=== PATIENT | male | born 1945 | race Caucasian/White ===

== ENCOUNTER → 2017-11-01 | Outpatient (CLI) | payer MEDICARE, BC, OTHER ==
[~2017-11-01] MED LIST: ACEBUTOLOL HCL400 MG PO; ADVAIR 250-501 EACH IH; AFLURIA 2045 MCG/010 IM; APAP650 PO; ASPIRIN325 PO; BAYER CHEWABLE81 MG PO; BENADRYL25 MG PO; COD LIVER OIL1 EAC4 PO; COLACE 100 MG100 MG PO; COMBIVENT IN; COMBIVENT RESPIM4 GM INH; DOXYCYCLINE 10100 MG PO; EXCEDRIN MIGRA1 EAC1 PO; FLECAINIDE ACET50 M1 PO; FLORASTOR250 MG PO; HYDROCODONE-AP1 EAC6 PO; IMIPRAMINE HCL25 MG PO; KLOR-CON 1010 MEQ PO; LASIX 20 MG TAB20 MG PO; LEVAQUIN 500 M500 M2 PO; MIRALAX17 GM PO; OCUVITE EYE +1 EACH PO; OCUVITE SOFTGE1 EAC1 PO; OCUVITE TABLET1 EAC1 PO; PEPCID40 MG PO; PREDNISONE 10 M10 MG PO; PREDNISONE 20 M20 MG PO; SINGULAIR 10 MG10 M1 PO; TOFRANIL; TOPROL XL50 MG PO; TYLENOL325 MG PO; VERAPAMIL ER180 MG PO; VITAMIN C500 M1 PO; VITAMIN D1000 UNIT PO; VITAMIN D3400 UNIT PO; XARELTO20 MG PO
--- NOTE | 2017-11-01 16:20 | 2DMMODE ---
[place] [address] 2 D/M-MODE ECHOCARDIOGRAM Name: KAYLYNN BETH Room: [facility]#: [id number] Admission: 11/01/17 Attend Phys: Tank Carmen, Discharge: Date of : 45 Date of Service: 11/01/17 1620 Report #: [id number] THIS REPORT FOR: //name// APPROVED REPORT Study performed: 11/01/2017 12:53:42 EXAM: Comprehensive 2D, Doppler, and color-flow Echocardiogram Patient Location: Out-Patient Status: routine BSA: 2.02 HR: 68 bpm BP: 142/82 mmHg Other Information Study Quality: Good Indications Cardiomyopathy 2D Dimensions LVEF(%): 58.76 (>50%) IVSd: 12.42 (7-11mm) LVOT Diam: 20.82 (18-24mm) LVDd: 50.60 mm PWd: 11.16 (7-11mm) Ascending Ao: 30.66 (22-36mm) LVDs: 34.79 (25-40mm) Aortic Root: 29.22 mm Tabares's LVEF: 58.76 % Volumes Left Atrial Volume (Systole) LA ESV Index: 15.70 mL/m2 Aortic Valve AoV Peak Lam.: 1.32 m/s AO Peak Gr.: 6.97 mmHg LVOT Max P.02 mmHg AO Mean Gr.: 3.81 mmHg LVOT Mean P.52 mmHg LVOT Max V: 0.87 m/s AO V2 VTI: 30.41 cm LVOT Mean V: 0.57 m/s VAUGHN (VTI): 2.50 cm2 LVOT V1 VTI: 22.36 cm Mitral Valve E/A Ratio: 0.81 MV Decel. Time: 348.09 [place] [address] 2 D/M-MODE ECHOCARDIOGRAM Name: KAYLYNN BETH Room: [facility]#: [id number] Admission: 11/01/17 Attend Phys: Tank Carmen, Discharge: Date of : 45 Date of Service: 11/01/17 1620 Report #: [id number] MV E Max Lam.: 0.72 m/s MV PHT: 100.94 ms MVA (PHT): 2.18 cm2 TDI E/Lateral E': 8.00 E/Medial E': 7.20 Medial E' Lam.: 0.10 m/s Lateral E' Lam.: 0.09 m/s Pulmonary Valve PV Peak Lam.: 0.98 m/s PV Peak Gr.: 3.87 mmHg Tricuspid Valve TR Peak Gr.: 36.16 mmHg RVSP: 41.16 mmHg Left Ventricle The left ventricle is normal size. There is mild global hypokinesis. There is left ventricular dyssynergy consistent with bundle branch block. There is normal left ventricular wall thickness. Left ventricular systolic function is mild to moderately decreased. LVEF is 45-50%. Grade I - abnormal relaxation pattern. Right Ventricle The right ventricle is normal size. The right ventricular systolic function is normal. Atria The left atrium size is normal. The right atrium size is normal. Aortic Valve The aortic valve is normal in structure. No aortic regurgitation is present. There is no aortic valvular stenosis. Mitral Valve The mitral valve is normal in structure. Mild mitral regurgitation. No evidence of mitral valve stenosis. Tricuspid Valve The tricuspid valve is normal in structure. Mild tricuspid regurgitation. The RVSP is __41.2 mmHg. Mild tricuspid regurgitation. The RVSP is _41.2 mmHg. Pulmonic Valve The pulmonary valve is normal in structure. There is no pulmonic [place] [address] 2 D/M-MODE ECHOCARDIOGRAM Name: KAYLYNN BETH [id number] Admission: 11/01/17 Attend Phys: Tank Carmen, Discharge: Date of : 45 Date of Service: 11/01/17 1620 Report #: [id number] Great Vessels The aortic root is normal in size. IVC is normal in size and collapses with >50% inspiration Pericardium There is no pericardial effusion. <Conclusion> The left ventricle is normal size. There is normal left ventricular wall thickness. Left ventricular systolic function is mild to moderately decreased. LVEF is 45-50%. Grade I - abnormal relaxation pattern. Mild mitral regurgitation. Mild tricuspid regurgitation. The RVSP is __41.2 mmHg. Mild tricuspid regurgitation. The RVSP is _41.2 mmHg. <ELECTRONICALLY SIGNED> By: Mathieu Lorenzo MD, FACC 11/01/171619 19 19 Mathieu Lorenzo MD, FACC /INF
== END ==
LOC: M.CRD 12:37
DX: I08.1 Rheumatic disorders of both mitral and tricuspid valves (principal); I42.9 Cardiomyopathy, unspecified; I48.3 Typical atrial flutter; I10 Essential (primary) hypertension

== ENCOUNTER 2018-01-05 12:10 | Inpatient (IN) | payer MEDICARE, BC, OTHER ==
[~2018-01-05] VITALS: Ht 182.9 cm; Wt 78.5 kg
[~2018-01-05 12:10] MED LIST changes: -APAP650 PO; -DOXYCYCLINE 10100 MG PO; -FLORASTOR250 MG PO; -MIRALAX17 GM PO; -OCUVITE EYE +1 EACH PO
[2018-01-05 12:18] VITALS: BP 154/82
[2018-01-05 13:05] LABS: HEMATOCRIT 39.6 % (42.0-52.0); HEMOGLOBIN 13.1 gm/dL (14.0-18.0); MCH 35.3 pg (26.0-34.0); MCV 107.1 fL (80.0-100.0); MPV 9.4 fl. (7.2-11.1); NUCLEATED RBCS 0 /100WBC; PLATELET COUNT* 223 thou/uL (150-400); RDW-CV 13.2 % (10.5-14.5); WBC 23.7 thou/uL (4.0-11.0)
[2018-01-05 13:15] LABS: ANION GAP 7 mmol/L (7-16); BUN 15 mg/dL (7-18); CALCIUM 8.4 mg/dL (8.5-10.1); CHLORIDE 97 mmol/L (98-107); CO2 31 mmol/L (21-32); GLUCOSE 165 mg/dL (70-99); POTASSIUM 3.9 mmol/L (3.5-5.1); SODIUM 135 mmol/L (136-145)
[2018-01-05 13:25] LABS: ALBUMIN 3.7 g/dL (3.4-5.0); ALKALINE PHOSPHATASE 90 U/L (46-116); LIPASE 78 U/L (73-393); NT-PRO BRAIN NAT PEPTIDE 2133 pg/mL (<300); SGOT 17 U/L (15-37); SGPT 20 U/L (30-65); TOTAL BILIRUBIN 2.1 mg/dL (<0.1-1.0); TOTAL PROTEIN 6.7 g/dL (6.4-8.2); TROPONIN-I LEVEL <0.06 ng/mL (<0.06)
[2018-01-05 13:47] LABS: ABSOLUTE LYMPHOCYTES 0.7 thou/uL (0.8-5.3); ABSOLUTE MONOCYTES 2.1 thou/uL (0.0-1.2); ABSOLUTE NEUTROPHILS 20.9 thou/uL (1.6-8.1); MACROCYTES 2+; PLATELET ESTIMATE ADEQUATE; POLYCHROMASIA 1+
--- NOTE | 2018-01-05 15:56 | EKG ---
[place] [address] ELECTROCARDIOGRAM REPORT Name: KAYLYNN BETH Room: [place] [address] ADM IN [facility]#: [id number] Admission: 01/05/18 Attend Phys: Eitan Kessler Discharge: Date of : 45 Report #: [id number] THIS REPORT FOR: //name// [facility] ED Test Date: 2018-01-05 Test Time: 12:24:10 Pat Name: KAYLYNN BETH Department: Room: Gender: Fiscal Clerk: Jennifer MCKEON : 1945 Requested By: Thad Deluna Order Number: [id number] MD: Jhony Dunham Measurements Intervals [place] Rate: 70 P: 0 ND: 57 QRS: 74 QRSD: 152 T: QT: 433 QTc: 468 Interpretive Statements Sinus rhythm Short ND interval Probable left atrial enlargement Nonspecific intraventricular conduction delay Borderline repolarization abnormality Compared to ECG 05/22/2016 07:23:48 Short ND interval now present ST (T wave) deviation no longer present Electronically Signed On 01-05-2018 15:55:53 CDT by Jhony Dunham [email or web address] <ELECTRONICALLY SIGNED> By: Jhony Dunham MD, [facility] 01/05/18 1555 1224 1224 Jhony Dunham MD, [facility] /EPI
[2018-01-05 16:30] VITALS: BP 130/55
--- NOTE | 2018-01-05 19:00 | NUR ---
PT ARRIVED TO ROOM 212 AT APPROX 1630, PT ORIENTED TO ROOM AND STAFF, PT A/O X4, STEADY ON FEET, UP AD ANJEL. ON 3L NC, STATES HE IS STARTING TO FEEL BETTER. VSS, SR ON THE MONITOR. PTS HOME MEDS REVIEWED AND UPDATED. ADMISSION HX, AND ASSESMENT DONE CHARTED. PT USING CALL LIGHT APPROPRIALTY. WILL CONTINUE TO MONITOR.
[2018-01-05 20:00] VITALS: BP 151/71
[2018-01-06] VITALS: BP 142/68
--- NOTE | 2018-01-06 00:08 | NUR ---
PT ALERT ORIENTED. O2 AT 3 LITERS NC. O2 SAT 99% TELEMETRY SHOWS SR, BBB, 1ST DEGREE AVB. RESTING QUIETLY. WILL CONTINUE TO MONITOR.
[2018-01-06 04:16] VITALS: BP 143/70
[2018-01-06 08:00] VITALS: BP 134/59
--- NOTE | 2018-01-06 09:00 | NUR ---
VSS, ASSUMED CARE IN THE AM, ASSESSMENT PEFORMED AND CHARTED, FALL PRECAUTIONS IN PLACE AND CALL LIGHT IN REACH, PT IS A&O4, UP AD ANEJL AND SR BBB ON MONITOR, PT IS UP AD ANJEL DENIES ANY PAIN AND IS ON 3L NC, HIS GOAL IS TO MANJU O2 DOWN RO 1-2 L AND WALK IN ROOM AND IMPROVE BREATHING.
[2018-01-06 12:00] VITALS: BP 128/63
[2018-01-06 17:08] VITALS: BP 116/50
[2018-01-06 20:00] VITALS: BP 152/64
--- NOTE | 2018-01-06 20:00 | NUR ---
VSS, PT IS PROGRESSING TOWARDS GOAL, PT IS UP AD ANJEL AND IS ON 2-3 L NC AND DENIES ANY PAIN IS A&O4 AND HAS BEEN UP IN ROOM AND TO CHAIR, WILL FOLLOW WITH PLAN OF CARE, HOURLY ROUNDS COMPLETED.
[2018-01-07] VITALS (7 sets, daily range): BP systolic 96–137; BP diastolic 44–79
--- NOTE | 2018-01-07 04:56 | NUR ---
PATIENT RESTED IN BED, NO ACUTE CHANGES. PATIENT DID NOT SHOW SIGNS OF DISTRESS. PATIENT RESTED WELL. CALL LIGHT WITHIN REACH, HOURLY ROUNDING OBSERVED, FALL PRECAUTIONS IN PLACE.
--- NOTE | 2018-01-07 08:00 | NUR ---
VSS, ASSUMED CARE IN THE AM, ASSESSMENT PERFROMED AND CHARTED, FALL PRECAUTIONS IN PLACE AND CALL LIGHT IN RECAH, PT IS A&O4 AND UP AD ANJEL, TRACING SR ON THE MONITOR AND IS TRACING SR ON THE MONITOR C BBB, PT IS ON 1-2 L NC AND DENIES ANY PAIN, PT GOAL IS TO IMPROVE BREATHING AND WALK IN ROOM, WILL FOLLOW WITH PLAN CARE.
[2018-01-08 04:00] VITALS: BP 139/62
--- NOTE | 2018-01-08 05:47 | NUR ---
PATIENT RESTED IN BED, NO ACUTE CHANGES. PATIENT DID NOT SHOW SIGNS OF DISTRESS, PATIENT TOLERATED 1 LITER O2 WELL. FALL PRECAUTIONS IN PLACE, PATIENT UP AB-ANJEL.
[2018-01-08 09:00] VITALS: BP 133/69
[2018-01-08 11:15] VITALS: BP 167/81
--- NOTE | 2018-01-08 11:54 | NUR ---
ASSUMED CARE OF PATIENT THIS AM AT 0730. PATIENT IS ALERT AN ORIENTED X 4. HE DENIES PAIN AND DISCOMFORT THIS AM. O2 SATS 97% ON 1 LITER. O2 DISCONTINUED. PATIENT TAKEN TO RADIOLOGY PER FOR A CT SCAN AND RETURNED. HE CONTINUES ON IV STERIODS. LUNG SOUNDS ARE CLEAR. PATIENT BECOMES SOA WITH MILD ACIVITY. TELE SHOWS SRMckay TORRE IN TO ROUND. PLANS FOR DISCHARGE ON TUESDAY.
[2018-01-08 16:30] VITALS: BP 150/74
[2018-01-08 20:00] VITALS: BP 151/82
[2018-01-08 20:30] VITALS: BP 170/78
--- NOTE | 2018-01-08 20:30 | NUR ---
PT TRANSFERRED TO FLOOR PER WHEELCHAIR ACCOMPANIED BY ER STAFF WITH BELONGINGS AND CHART. ORIENTED TO ROOM AND CALL LITE. PT PLACED ON O2 1L PER REQUEST, ROOM AIR SAT 91%. OCC CONGESTED COUGH HEARD, PT STATES HE IS HAVING SOME SPUTUM BUT NOT OBSERVED. DENIES PAIN. RWRIST SL IV. PLACED ON TELE MONITOR, SR RATE 82. DENIES NEEDS AT THIS TIME. WILL CONTINUE TO MONITOR AND PROVIDE CARES NEEDED.CALL LITE IN EASY REACH, PT AOX4 AND UP WITH STEADY GAIT IN ROOM.
[2018-01-09 00:37] VITALS: BP 140/64
[2018-01-09 03:55] VITALS: BP 145/75
--- NOTE | 2018-01-09 04:01 | NUR ---
PATIENT WAS TRANSFER TO ROOM 308 YESTERDAY. PATIENT DID NOT SHOW SIGNS OF DISTRESS AT TRANSFER OR DID NOT SHOW ACUTE CHANGES.
--- NOTE | 2018-01-09 06:29 | NUR ---
PT SLEPT WELL OVERNIGHT AFTER SETTLING IN AFTER TRANSFER FROM [facility]. TELE MONITOR, SR OVERNIGHT. PO MEDS GIVEN WITHOUT DIFFICULTY. LWRIST IV SL. NO LABS THIS MORNING. WEARING 02 1.5L OVERNIGHT TO KEEP SATS >92% UP AD ANJEL IN ROOM VOIDING WITHOUT DIFFICULTY. ABLE TO USE CALL LITE AND MAKE NEEDS KNOWN. POSSIBLE DISCHARGE TODAY WITH FOLLOW UP OUTPT.
--- NOTE | 2018-01-09 07:27 | CON ---
[address] [address] CONSULTATION Name: KAYLYNN BETH Room: [address] IN .R.#: [id number] Admission: 01/05/18 Attend Phys: Eitan Kessler Discharge: Date of : 45 Report #: [id number] THIS REPORT FOR: //name// CC: Kaylynn Rodriguez DATE OF SERVICE: 01/06/2018 REQUESTING PHYSICIAN: Jesus Rodriguez DO REASON FOR CONSULTATION: COPD exacerbation, pneumonia. DISCUSSION: The patient is a 72-year-old man with history of very severe COPD. He has chronic hypoxemia, but has declined O2 in the past. He follows with Dr. Esteves in our office. He presented to the Emergency Department yesterday with 3-4 day history of increasing cough, congestion, shortness of breath. Has been coughing up some thick secretions. They had been yellow. Not aware of any fevers at home. He had O2 saturations in the 70s at the time he presented to the Emergency Department. He was placed on oxygen. Chest x-ray revealed bibasilar infiltrates. He has been admitted. He has been on IV steroids. Antibiotic therapy has been started. Also been getting nebulizer treatments. He is starting to feel somewhat better today. He is a former smoker, quitting over 10 years ago. He does have very severe COPD. Last full pulmonary function studies done 2014. His FEV1 was only 0.65 or 19% of predicted. His FEV1/FVC ratio is 33%. Spirometry done a year ago, his FEV1 was 0.6 which came as 19% of predicted. Normally at home, he is on Advair 250/50 one puff b.i.d., nebulizer treatments with DuoNeb supplemented by Combivent, which he generally does. Other one goes up to at least 4 times a day and montelukast 10 mg a day. He will take Mucinex, though the amounts and frequency may vary depending on the amount of congestion that he has. He is chronically hypoxic. Was set up with oxygen several years ago after hospital stay here, but he declined to continue using it and had picked up. When he was in the office in August and saw Dr. Esteves at that time, revealed marked hypoxemia. He certainly did qualify for O2 at that time at 2 liters, but again he declined to use it. I noted at that time, his resting room air O2 saturations were 81%. PAST MEDICAL HISTORY: Besides the severe COPD is remarkable for atrial fibrillation. Crime Victim Specialist has recommended Xarelto in the past, but he declined that as well. History of prostate cancer. He has had a prostatectomy, osteoporosis, prior TIA, [place] [address] CONSULTATION Name: KAYLYNN BETH Room: [address] IN [facility]#: [id number] Admission: 01/05/18 Attend Phys: Eitan Kessler Discharge: Date of : 45 Report #: [id number] SOCIAL HISTORY: Former smoker as noted. Has 60+ pack year smoking history, but quit in 2004. 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 FAMILY HISTORY: Positive for COPD, hypertension and cancer. REVIEW OF SYSTEMS: A 12-point ROS was done. Note positives as above. Denies any recent complaints of palpitations. Denies any difficulty swallowing. He has not had any nausea or vomiting. He has had little bit of constipation. He has not had any chest pain. Has had a near syncopal episode in the past, but none recently. Has not noted any lower extremity edema. No hemoptysis. No blood in his stools. PHYSICAL EXAMINATION: GENERAL APPEARANCE: The patient is a male who looks stated age. He is resting in bed. His O2 is running via nasal cannula. He is alert, conversant, and able to speak in full sentences. HEENT: Head is normocephalic. Sclerae are nonicteric. Mucous membranes are moist. He has no oral candidiasis noted. NECK: Negative for adenopathy. No JVD. Neck muscles quite well developed. No supraclavicular adenopathy. HEART: Regular. Occasional extrasystole. It does appear that he is in normal sinus rhythm. No S3 is heard. LUNGS: Show breath sounds to be diminished. He has prolonged expiratory phase. Scattered expiratory wheezes are heard. Does have a few faint bibasilar crackles heard. No E to A changes. No dullness to percussion. Excursion is equal. No CVA tenderness. ABDOMEN: Soft, without appreciable hepatosplenomegaly. There is no guarding or rebound tenderness. EXTREMITIES: He has no clubbing. Radial pulses are present. Lower extremities negative for any significant edema. SKIN: Warm and dry. NEUROLOGIC: He is alert and oriented x 3. Moving all extremities. Affect is normal. LABORATORY AND X-RAY FINDINGS: Chest x-ray does reveal bibasilar infiltrates. This is new compared to studies done 2 years ago. White blood cell count was 23,700, hemoglobin 13.1, hematocrit of 39.6, MCV of 107. Platelets are normal. On his chemistry, lactic acid was 1.8, potassium 3.9, BUN of 15, creatinine of 1.0, total bilirubin elevated at 2.1. Transaminases normal. ProBNP 2133. Alkaline phosphatase was normal at 90. Echocardiogram done this spring revealed LV function to be mild to moderately decreased with an EF of 45-50%. He had grade 1 diastolic dysfunction. RV was normal. He had mild mitral regurgitation. IMPRESSION: 1. Bilateral pulmonary infiltrates. All [place] [address] CONSULTATION Name: KAYLYNN BETH Room: [address] IN [facility].#: [id number] Admission: 01/05/18 Attend Phys: Eitan Kessler Discharge: Date of : 45 Report #: [id number] 2. Chronic obstructive pulmonary disease exacerbation. Baseline has very severe disease with his FEV1 of only 19% of predicted. 3. History of atrial fibrillation. 4. Chronic hypoxic respiratory failure. Previously had declined supplemental O2 at home. 5. History of spiculated lung mass noted on imaging studies 2 years ago. Unclear what followup imaging he may or may not have had. RECOMMENDATIONS: 1. Continue with antibiotics, steroids and bronchodilator therapy. Use budesonide and Brovana while hospitalized to replace his Advair. 2. Mucinex. 3. Follow up imaging studies. 4. Consider followup CT scan of his chest as well. I would like the pneumonic infiltrates to clear. 5. He is now much more open to utilizing O2 at home. O2 needs can be reevaluated prior to discharge. 6. Anticipate he will need several days of inpatient treatment. <ELECTRONICALLY SIGNED> By: Jaleesa Nelson MD 01/09/18 0727 1038 1924Jaleesa Nelson MD /nt
[2018-01-09 08:00] VITALS: BP 130/73
[2018-01-09 12:00] VITALS: BP 160/80
--- NOTE | 2018-01-09 15:36 | NUR ---
Pt to dc home with tomorrow. Possible oxygen needs; SW to await results of exercise oximetry and arrange for oxygen to be delivered if needed.
[2018-01-09 16:00] VITALS: BP 150/74
--- NOTE | 2018-01-09 16:21 | NUR ---
PT UP IN ROOM WITH STEADY GAIT. REPORTS IMPROVEMENT OF BREATHING. PT REMAINS ON O2@2L NC.
[2018-01-10 00:12] VITALS: BP 146/80
--- NOTE | 2018-01-10 05:17 | NUR ---
ASSESSMENT COMPLETE. PT SLEPT THROUGH THE NIGHT WITHOUT ANY CONCERNS. PT DENIES PAIN. PT IS ON 1L PER NC WITH ADEQUATE SATS. PT IS UP AD ANJEL WITH STEADY GAIT TO BATHROOM. SEE ASSESSMENT AND VITALS FOR OTHER DETAILS. CALL LIGHT WITHIN REACH, WILL CONTINUE PLAN OF CARE
[2018-01-10 08:00] VITALS: BP 128/65
--- NOTE | 2018-01-10 12:29 | NUR ---
Pt to dc home with today. Pt does not need oxygen arranged for home. No other dc needs expressed.
[2018-01-10] MEDS ORDERED: APAP650 PO (13:37)
[2018-01-10] MEDS ORDERED: OCUVITE EYE +1 EACH PO (13:39)
[2018-01-10] MEDS ORDERED: MIRALAX17 GM PO (13:45)
[2018-01-10] MEDS ORDERED: FLORASTOR250 MG PO (13:46)
[2018-01-10] MEDS ORDERED: PREDNISONE 10 M10 MG PO (13:56)
[2018-01-10] MEDS ORDERED: DOXYCYCLINE 10100 MG PO (13:57)
--- NOTE | 2018-01-10 14:23 | NUR ---
ASSUMED CARE THIS AM, SEE ASSESSMENT FOR DETAILS. DISCHARGE ORDERS RECEIVED, IV ACCESS DISCONTINUED WITHOUT ISSUE. DISCHARGE INSTRUCTIONS, FOLLOW UP APPOINTMENTS, PRESCRIPTIONS, DISCUSSED WITH, GIVEN TO PATIENT, DENIES QUESTIONS. PERSONAL EFFECTS GATHERED, ACCOUNTED FOR, IN COMPANY OF PATIENT. TRANSPORTED TO MAIN ENTRANCE VIA WHEELCHAIR IN STABLE CONDITION.
== END 2018-01-10 14:30 | disposition home or self-care (01) | DRG 177 ==
LOC: M.ERS 12:10 → M.TBA-ER 13:45 → M.2W 13:45 → M.3W 01-08 20:56
PROVIDERS: Emergency Medicine Emergency Medical Services; ADMIT Internal Medicine
DX: J69.0 Pneumonitis due to inhalation of food and vomit (principal); J96.01 Acute respiratory failure with hypoxia; R65.11 Systemic inflammatory response syndrome (SIRS) of non-infectious origin with acute organ dysfunction; J44.1 Chronic obstructive pulmonary disease with (acute) exacerbation; J44.0 Chronic obstructive pulmonary disease with (acute) lower respiratory infection; I42.9 Cardiomyopathy, unspecified; I48.92 Unspecified atrial flutter; E44.0 Moderate protein-calorie malnutrition; M81.0 Age-related osteoporosis without current pathological fracture; I10 Essential (primary) hypertension; I48.91 Unspecified atrial fibrillation; R91.8 Other nonspecific abnormal finding of lung field; Z88.1 Allergy status to other antibiotic agents; Z88.8 Allergy status to other drugs, medicaments and biological substances; Z85.46 Personal history of malignant neoplasm of prostate; Z98.42 Cataract extraction status, left eye; Z98.41 Cataract extraction status, right eye; Z79.2 Long term (current) use of antibiotics; Z87.891 Personal history of nicotine dependence; Z98.890 Other specified postprocedural states; Z86.73 Personal history of transient ischemic attack (TIA), and cerebral infarction without residual deficits; Z68.23 Body mass index [BMI] 23.0-23.9, adult; Z79.82 Long term (current) use of aspirin; Z79.899 Other long term (current) drug therapy

== ENCOUNTER 2018-09-05 10:23 | Inpatient (IN) | payer MEDICARE, BC, OTHER ==
[~2018-09-05] VITALS: Ht 182.9 cm; Wt 80.3 kg
[2018-09-05 10:23] VITALS: BP 160/80
[~2018-09-05 10:23] MED LIST changes: +APAP650 PO; +DOXYCYCLINE 10100 MG PO; +FLORASTOR250 MG PO; +MIRALAX17 GM PO; +OCUVITE EYE +1 EACH PO
[2018-09-05 10:56] LABS: HEMATOCRIT 33.3 % (42.0-52.0); HEMOGLOBIN 11.3 gm/dL (14.0-18.0); MCH 36.3 pg (26.0-34.0); MCHC 33.9 g/dL (28.0-37.0); MCV 106.9 fL (80.0-100.0); MPV 8.3 fl. (7.2-11.1); NUCLEATED RBCS 0 /100WBC; PLATELET COUNT* 280 thou/uL (150-400); RBC 3.11 mil/uL (4.50-6.00); RDW-CV 12.9 % (10.5-14.5)
[2018-09-05 11:06] LABS: APTT 27.5 Seconds (25.0-31.3)
[2018-09-05] MEDS ORDERED: VITAMIN D3400 UNIT PO (11:08)
[2018-09-05] MEDS ORDERED: STIOLTO RESPIMAT4 GM IH (11:08)
[2018-09-05 11:13] LABS: INFLUENZA A ANTIGEN None Detected (None Detect); INFLUENZA B ANTIGEN None Detected (None Detect)
[2018-09-05 11:15] LABS: ANION GAP 7 mmol/L (7-16); BUN 8 mg/dL (7-18); CALCIUM 8.1 mg/dL (8.5-10.1); CHLORIDE 95 mmol/L (98-107); CO2 30 mmol/L (21-32); CREATININE 0.6 mg/dL (0.6-1.3); GLUCOSE 117 mg/dL (70-99); POTASSIUM 4.2 mmol/L (3.5-5.1); SODIUM 132 mmol/L (136-145)
[2018-09-05 11:17] LABS: BE 1.2 mmol/L (-2 to +3); HCO3 25.7 mmol/L (22.0-26.0); PCO2 40.3 mmHg (35.0-45.0); pH 7.422 (7.340-7.450)
[2018-09-05 11:18] LABS: ABSOLUTE LYMPHOCYTES 0.6 thou/uL (0.8-5.3); ABSOLUTE MONOCYTES 1.1 thou/uL (0.0-1.2); ABSOLUTE NEUTROPHILS 10.3 thou/uL (1.6-8.1)
[2018-09-05 11:19] LABS: PLATELET ESTIMATE ADEQUATE
[2018-09-05 11:21] LABS: MACROCYTES 2+
[2018-09-05 11:24] LABS: PO2 140.5 mmHg (75.0-100.0)
[2018-09-05 11:27] LABS: ALBUMIN 2.8 g/dL (3.4-5.0); ALKALINE PHOSPHATASE 88 U/L (46-116); NT-PRO BRAIN NAT PEPTIDE 1789 pg/mL (<300); SGOT 12 U/L (15-37); SGPT 17 U/L (30-65); TOTAL BILIRUBIN 0.9 mg/dL (<0.1-1.0); TOTAL PROTEIN 5.9 g/dL (6.4-8.2); TROPONIN-I LEVEL <0.06 ng/mL (<0.06)
[2018-09-05 13:21] VITALS: BP 138/86
[2018-09-05 13:45] VITALS: BP 171/72
--- NOTE | 2018-09-05 14:21 | NUR ---
PT ARRIVED ON THE UNIT FROM ER AT 1345. REPORT TAKEN FROM NEIL CARTER. ASSESSED PT AND DOCUMENTED. PT SAT AT 100 ON 4L. LOWERED 02 TO 2.5L SAT AT 96%. PT IS AFEBRILE. HE IS A&O WITH NO C/O PAIN. PT SIGNED PT RIGHTS AND FALL AGREEMENT. PT HAS AGREED TO WEAR SCDS. HEART MONITER ON. BED IS IN LOW POSITION CALL LIGHT IS IN REACH. WM.
--- NOTE | 2018-09-05 16:38 | NUR ---
PT HAS RESTED IN HIS ROOM. IS AT BEDSIDE. EDUCATION GIVEN ON DEMAND. HOURLY ROUNDING COMPLETE.
[2018-09-05 16:43] VITALS: BP 151/69
--- NOTE | 2018-09-05 17:03 | EKG ---
[place] [address] ELECTROCARDIOGRAM REPORT Name: KAYLYNN BETH Room: [address] ADM IN M.R.#: [id number] Admission: 09/05/18 Attend Phys: Wellington Kowalski MD Discharge: Date of : 45 Report #: [id number] THIS REPORT FOR: //name// [facility] ED Test Date: 2018-09-05 Test Time: 10:56:21 Pat Name: KAYLYNN DANIELKelly Department: Room: [facility] Gender: M Steward/Stewardess Third: : 1945 Requested By: Soraya Boland Order Number: [id number] MD: Mathieu Lorenzo Measurements Intervals [place] Rate: 75 P: 89 NM: 50 QRS: 66 QRSD: 137 T: 57 QT: 408 QTc: 456 Interpretive Statements Sinus rhythm Short NM interval Nonspecific intraventricular conduction delay Compared to ECG 01/05/2018 12:24:10 No significant changes Electronically Signed On 09-05-2018 17:02:46 HELP DESK REP by Mathieu Lorenzo [email or web address] <ELECTRONICALLY SIGNED> By: Mathieu Lorenzo MD, [facility] 09/05/18 1702 1056 1056 Mathieu Lorenzo MD, [facility] /EPI
--- NOTE | 2018-09-05 17:16 | 2DMMODE ---
[place] [address] 2 D/M-MODE ECHOCARDIOGRAM Name: KAYLYNN BETH Room: [address] IN [facility]#: [id number] Admission: 09/05/18 Attend Phys: Wellington Kowalski, Discharge: Date of : 45 Date of Service: 09/05/18 1716 Report #: [id number] THIS REPORT FOR: //name// APPROVED REPORT Study performed: 09/05/2018 14:46:21 EXAM: Comprehensive 2D, Doppler, and color-flow Echocardiogram Patient Location: In-Patient Room #: [facility] Status: routine BSA: 2.04 HR: 86 bpm BP: 138/86 mmHg Rhythm: NSR Other Information Study Quality: Good Indications Dyspnea 2D Dimensions IVSd: 12.21 (7-11mm) LVOT Diam: 21.27 (18-24mm) LVDd: 51.61 mm PWd: 12.40 (7-11mm) Ascending Ao: 35.22 (22-36mm) LVDs: 36.10 (25-40mm) Aortic Root: 35.18 mm Volumes Left Atrial Volume (Systole) LA ESV Index: 32.50 mL/m2 Aortic Valve AoV Peak Lam.: 1.51 m/s AO Peak Gr.: 9.11 mmHg LVOT Max P.16 mmHg AO Mean Gr.: 5.62 mmHg LVOT Mean P.94 mmHg LVOT Max V: 1.02 m/s AO V2 VTI: 32.53 cm LVOT Mean V: 0.63 m/s VAUGHN (VTI): 2.18 cm2 LVOT V1 VTI: 19.97 cm Mitral Valve E/A Ratio: 0.74 MV Decel. Time: 149.18 ms MV E Max Lam.: 0.86 m/[place] [address] 2 D/M-MODE ECHOCARDIOGRAM Name: KAYLYNN BETH Room: [address] IN .R.#: [id number] Admission: 09/05/18 Attend Phys: Wellington Kowalski, Discharge: Date of : 45 Date of Service: 09/05/18 1716 Report #: [id number] MV PHT: 43.26 ms MVA (PHT): 5.09 cm2 TDI E/Lateral E': 7.82 Lateral E' Lam.: 0.11 m/s Pulmonary Valve PV Peak Lam.: 1.22 m/s PV Peak Gr.: 5.98 mmHg Tricuspid Valve RAP Estimate: 5.00 mmHg TR Peak Gr.: 54.02 mmHg RVSP: 59.00 mmHg PA Pressure: 59.00 mmHg Left Ventricle The left ventricle is normal size. There is normal LV segmental wall motion. Mild concentric left ventricular hypertrophy. Left ventricular systolic function is normal. LVEF is 55-60%. Grade I - abnormal relaxation pattern. Right Ventricle The right ventricle is normal size. The right ventricular systolic function is normal. Atria The left atrium size is normal. The right atrium size is normal. Aortic Valve The aortic valve is normal in structure. No aortic regurgitation is present. There is no aortic valvular stenosis. Mitral Valve The mitral valve is normal in structure. Trace mitral regurgitation. No evidence of mitral valve stenosis. Tricuspid Valve The tricuspid valve is normal in structure. Mild tricuspid regurgitation. Moderate pulmonary hypertension. Pulmonic Valve The pulmonary valve is normal in structure. There is no pulmonic valvular regurgitation. [place] [address] 2 D/M-MODE ECHOCARDIOGRAM Name: KAYLYNN BETH Room: [address] IN ..#: [id number] Admission: 09/05/18 Attend Phys: Wellington Kowalski, Discharge: Date of : 45 Date of Service: 09/05/18 1716 Report #: [id number] The aortic root is normal in size. IVC is normal in size and collapses >50% with inspiration. Pericardium There is no pericardial effusion. <Conclusion> The left ventricle is normal size. Mild concentric left ventricular hypertrophy. Left ventricular systolic function is normal. LVEF is 55-60%. Grade I - abnormal relaxation pattern. Mild tricuspid regurgitation. Moderate pulmonary hypertension. <ELECTRONICALLY SIGNED> By: Mathieu Lorenzo MD, FACC 09/05/181715 15 15 Mathieu Lorenzo MD, FACC /INF
[2018-09-05 20:00] VITALS: BP 153/65
[2018-09-06] VITALS: BP 113/50; BP 156/78
[2018-09-06 04:00] VITALS: BP 149/71
--- NOTE | 2018-09-06 04:42 | NUR ---
PATIENT RESTED IN BED, NO ACUTE CHANGES. PATIENT DID NOT SHOW SIGNS OF DISTRESS. CALL LIGHT WITH IN REACH, HOURLY ROUNDING OBSERVED.
[2018-09-06 05:17] LABS: HEMATOCRIT 31.5 % (42.0-52.0); HEMOGLOBIN 10.7 gm/dL (14.0-18.0); MCH 36.8 pg (26.0-34.0); MCV 108.2 fL (80.0-100.0); MPV 8.7 fl. (7.2-11.1); RBC 2.91 mil/uL (4.50-6.00); RDW-CV 12.7 % (10.5-14.5); WBC 5.4 thou/uL (4.0-11.0)
[2018-09-06 05:33] LABS: CALCIUM 8.6 mg/dL (8.5-10.1); CREATININE 0.8 mg/dL (0.6-1.3); MAGNESIUM 1.9 mg/dL (1.8-2.4)
[2018-09-06 05:35] LABS: POTASSIUM 5.3 mmol/L (3.5-5.1)
[2018-09-06 08:00] VITALS: BP 140/62
--- NOTE | 2018-09-06 10:58 | NUR ---
MET WITH PT TO DISCUSS HOME SITUATION/DC PLANNING. PT LIVES WITH . HE IS INDEPENDENT WITH ADLS. USES O2 AND NEBULIZER THRU [place]. STATES WEARS O2 2.5L 'MOST OF THE TIME' AND ALWAYS AT NIGHT. REPORTS FEELING SOME IMPROVED TODAY. HAS NOT HAD HH IN PAST, DOESN'T HAVE A DPOA. PT PLANS TO RETURN HOME AT DC. WILL FOLLOW
[2018-09-06 12:08] VITALS: BP 148/67
--- NOTE | 2018-09-06 13:03 | NUR ---
PATIENT UP IN ROOM. TAKING PO WELL AND TOOK MEDS. SPOKE WITH DAUGHTER AT BEDSIDE.
[2018-09-06 15:30] VITALS: BP 146/68
--- NOTE | 2018-09-06 18:48 | EKG ---
[place] [address] ELECTROCARDIOGRAM REPORT Name: KAYLYNN BETH Room: [address] ADM IN M.R.#: [id number] Admission: 09/05/18 Attend Phys: Wellington Kowalski MD Discharge: Date of : 45 Report #: [id number] THIS REPORT FOR: //name// [facility] Test Date: 2018-09-06 Test Time: 08:20:06 Pat Name: KAYLYNN BETH Department: Room: [facility] Gender: M Shoe Repairer Helper: : 1945 Requested By: Wellington Kowalski Order Number: [id number] Tana MD: Mathieu Lorenzo Measurements Intervals [place] Rate: 62 P: 87 AK: 197 QRS: 78 QRSD: 124 T: 89 QT: 467 QTc: 475 Interpretive Statements Sinus rhythm Left bundle branch block Baseline wander in lead(s) II,III,aVF Compared to ECG 09/05/2018 10:56:21 Left bundle-branch block now present Short AK interval no longer present Intraventricular conduction delay no longer present Electronically Signed On 09-06-2018 18:47:58 ELECTRONIC ENGINEERING TECHNICIAN by Mathieu Lorenzo [email or web address] <ELECTRONICALLY SIGNED> By: Mathieu Lorenzo MD, FAC 09/06/18 1847 9 9 Mathieu Lorenzo MD, [facility] /EPI
[2018-09-06 20:00] VITALS: BP 126/60
[2018-09-07] VITALS: BP 151/71
[2018-09-07 04:00] VITALS: BP 140/66
--- NOTE | 2018-09-07 05:31 | NUR ---
ASSUMED PT CARE AT 1930. ASSESSMENT COMPLETED CHARTED. PT C/O SOA ON EXCERTION. UP AD ANJEL IN ROOM. O2 ON PER PROTOCOL. NO C/O PAIN OR DISCOMFORT. PT RESTING IN BED AT THIS TIME. ABLE TO MAKE NEEDS KNOWN. WILL CONTINUE TO MONITOR.
[2018-09-07 08:11] VITALS: BP 141/70
--- NOTE | 2018-09-07 11:48 | NUR ---
PT ALERT AND ORIENTED. TELE TRACKING NSR AND ALL VSS ON 3L NC. PT C/O BEAVERS. SATS MID 80'S-LOW 90'S AFTER AMBULATION- RECOVERS MID 90'S WITH REST. DENIES PAIN AT THIS TIME. EDUCATED ON SAFETY AND PLAN OF CARE. PLEASE SEE ASSESSMENT FOR ADDITIONAL INFORMATION. WILL CONT TO MONITOR
[2018-09-07 15:30] VITALS: BP 167/74
--- NOTE | 2018-09-07 16:40 | EKG ---
[place] [address] ELECTROCARDIOGRAM REPORT Name: KAYLYNN BETH Room: [address] ADM IN M.R.#: [id number] Admission: 09/05/18 Attend Phys: Wellington Kowalski MD Discharge: Date of : 45 Report #: [id number] THIS REPORT FOR: //name// [facility] Test Date: 2018-09-07 Test Time: 08:36:01 Pat Name: KAYLYNN BETH Department: Room: [facility] Gender: M Contract Processor: : 1945 Requested By: Wellington Kowalski Order Number: [id number] Tana MD: Rios Mora Measurements Intervals [place] Rate: 74 P: 92 TX: 188 QRS: 85 QRSD: 126 T: 90 QT: 425 QTc: 472 Interpretive Statements Sinus rhythm Left bundle branch block Compared to ECG 09/06/2018 08:20:06 No significant changes Electronically Signed On 09-07-2018 16:40:47 HEARING AID DISPENSER by Rios Mora [email or web address] <ELECTRONICALLY SIGNED> By: Rios Mora MD, [facility] 09/07/18 1640 [id number] 5 Rios Mora MD, FACC /EPI
[2018-09-07 20:00] VITALS: BP 140/68
[2018-09-08] VITALS: BP 139/71
[2018-09-08 04:53] LABS: CALCIUM 8.3 mg/dL (8.5-10.1); CREATININE 0.7 mg/dL (0.6-1.3); MAGNESIUM 1.7 mg/dL (1.8-2.4); POTASSIUM 4.5 mmol/L (3.5-5.1)
--- NOTE | 2018-09-08 06:50 | NUR ---
ASSUMED PT CARE 1929. ASSESSMENT COMPLETED CHARTED. ABLE TO MAKE NEEDS KNOWN, NO C/O PAIN OR DISCOMFORT. PT RESTING IN BED AT THIS TIME. UP AD ANJEL. WILL CONTINUE TO MONITOR.
[2018-09-08 08:00] VITALS: BP 124/63
--- NOTE | 2018-09-08 10:53 | EKG ---
[place] [address] ELECTROCARDIOGRAM REPORT Name: KAYLYNN BETH Room: [address] ADM IN M.R.#: [id number] Admission: 09/05/18 Attend Phys: Wellington Kowalski MD Discharge: Date of : 45 Report #: [id number] THIS REPORT FOR: //name// [facility] Test Date: 2018-09-08 Test Time: 08:10:10 Pat Name: KAYLYNN FREDYKelly Department: Room: [facility] Gender: M Piano Stringer: : 1945 Requested By: Wellington Kowalski Order Number: [id number] Reading MD: Rios Mora Measurements Intervals [place] Rate: 79 P: 78 MD: 178 QRS: 81 QRSD: 116 T: 76 QT: 403 QTc: 463 Interpretive Statements Sinus rhythm Nonspecific intraventricular conduction delay Borderline repolarization abnormality Baseline wander in lead(s) V5 Compared to ECG 09/07/2018 08:36:01 Intraventricular conduction delay persists Electronically Signed On 09-08-2018 10:53:13 RETAIL AREA MANAGER by Rios Mora [email or web address] <ELECTRONICALLY SIGNED> By: Rios Mora MD, FAC 09/08/18 1053 0810 0810 Rios Mora MD, [facility] /EPI
--- NOTE | 2018-09-08 11:48 | NUR ---
CONTINUE TO FOLLOW, MET WITH PT. HE IS HOPEFUL TO GO HOME TODAY. DECLINES NEED FOR HH, HAS O2 AT HOME. PT GIVEN LIST OF AREA PCPS, HE PLANS TO DISCUSS AND INVESTIGATE FOR POSSIBLE PCP CHANGE.
[2018-09-08 11:54] VITALS: BP 148/77
[2018-09-08] MEDS ORDERED: PREDNISONE 10 M10 MG PO (12:50)
[2018-09-08] MEDS ORDERED: MUCINEX600 MG PO (12:50)
[2018-09-08] MEDS ORDERED: AZITHROMYCIN 2250 MG PO (12:50)
[2018-09-08] MEDS ORDERED: CEFDINIR300 MG PO (12:50)
[2018-09-08 13:20] VITALS: BP 148/77
--- NOTE | 2018-09-08 15:12 | NUR ---
PT DISCHARGED TODAY FROM RM 225 AROUND 1450. IV TAKEN OUT. DISCHARGE PAPERWORK GIVEN. SCRIPTS GIVEN. ALL QUESTIONS ANSWERED. PT TAKEN OUTVIA WHEELCHAIR AT THAT TIME.
== END 2018-09-08 14:56 | disposition home or self-care (01) | DRG 871 ==
LOC: M.ERS 10:23 → M.TBA-ER 11:34 → M.2W 11:34
PROVIDERS: Personal Emergency Response Attendant; ADMIT Internal Medicine
DX: A41.9 Sepsis, unspecified organism (principal); J96.21 Acute and chronic respiratory failure with hypoxia; J15.9 Unspecified bacterial pneumonia; J44.1 Chronic obstructive pulmonary disease with (acute) exacerbation; J44.0 Chronic obstructive pulmonary disease with (acute) lower respiratory infection; I48.92 Unspecified atrial flutter; I50.22 Chronic systolic (congestive) heart failure; I48.91 Unspecified atrial fibrillation; I11.0 Hypertensive heart disease with heart failure; I27.20 Pulmonary hypertension, unspecified; Z85.46 Personal history of malignant neoplasm of prostate; Z98.42 Cataract extraction status, left eye; Z98.41 Cataract extraction status, right eye; Z88.1 Allergy status to other antibiotic agents; Z88.8 Allergy status to other drugs, medicaments and biological substances; Z87.891 Personal history of nicotine dependence; Z92.3 Personal history of irradiation; Z85.118 Personal history of other malignant neoplasm of bronchus and lung; Z79.82 Long term (current) use of aspirin; Z79.899 Other long term (current) drug therapy

== ENCOUNTER 2019-09-25 11:53 | Emergency (ER) | payer MEDICARE, BC, OTHER ==
[~2019-09-25] VITALS: Ht 177.8 cm; Wt 81.7 kg
[~2019-09-25 11:53] MED LIST changes: +AZITHROMYCIN 2250 MG PO; +CEFDINIR300 MG PO; +MUCINEX600 MG PO; +STIOLTO RESPIMAT4 GM IH
[2019-09-25 12:21] VITALS: BP 00/00
== END 2019-09-25 12:21 ==
LOC: M.ERS 11:53
DX: I46.9 Cardiac arrest, cause unspecified (principal); I48.91 Unspecified atrial fibrillation; J44.9 Chronic obstructive pulmonary disease, unspecified; I11.0 Hypertensive heart disease with heart failure; I50.20 Unspecified systolic (congestive) heart failure; Z88.1 Allergy status to other antibiotic agents; Z88.8 Allergy status to other drugs, medicaments and biological substances